=== PATIENT | male | born 1990 | race Caucasian/White ===

== ENCOUNTER 2019-03-15 23:58 | Emergency (ER) | payer OTHER ==
[~2019-03-15] VITALS: Ht 167.6 cm; Wt 56.7 kg
[2019-03-16 00:08] VITALS: BP 134/84
== END 2019-03-16 01:07 | disposition home or self-care (01) ==
LOC: ER 03-16 00:01
DX: B00.9 Herpesviral infection, unspecified (principal); Z59.0 Homelessness

== ENCOUNTER 2019-06-01 19:42 | Emergency (ER) | payer OTHER ==
[~2019-06-01] VITALS: Ht 167.6 cm; Wt 54.9 kg
[2019-06-01 20:54] VITALS: BP 112/76
== END 2019-06-01 21:55 | disposition home or self-care (01) ==
LOC: ER 19:44
DX: L03.116 Cellulitis of left lower limb (principal); L03.115 Cellulitis of right lower limb; Z59.0 Homelessness

== ENCOUNTER 2019-09-30 15:06 | Emergency (ER) | payer MEDICAID, OTHER ==
[~2019-09-30] VITALS: Ht 167.6 cm; Wt 56.7 kg
[2019-09-30 15:24] VITALS: BP 128/81
--- NOTE | 2019-09-30 15:25 | NUR ---
PT AAOX4. AMBULATORY. C/O COUGH AND CONGESTION SINCE MONDAY. PT afebrile, VSS. Awaiting MD for eval.
--- NOTE | 2019-09-30 15:25 | NUR ---
RR EVEN AND UNLABORED. VSS.
== END 2019-09-30 15:38 | disposition home or self-care (01) ==
LOC: ER 15:10
DX: J40 Bronchitis, not specified as acute or chronic (principal); F17.200 Nicotine dependence, unspecified, uncomplicated; Z59.0 Homelessness

== ENCOUNTER 2020-08-14 11:57 | Emergency (ER) | payer MEDICAID, OTHER ==
[~2020-08-14] VITALS: Ht 170.2 cm; Wt 56.7 kg
[2020-08-14 12:50] VITALS: BP 123/85
== END 2020-08-14 12:50 | disposition home or self-care (01) ==
LOC: ER 12:02
DX: R21 Rash and other nonspecific skin eruption (principal); F17.200 Nicotine dependence, unspecified, uncomplicated; Z59.0 Homelessness